=== PATIENT | female | born 1995 | race Caucasian/White ===

== ENCOUNTER 2024-06-15 15:52 | Emergency (ER) | payer OTHER ==
[2024-06-15] MEDS ORDERED: Dexamethasone 4 MG TAB ONE (18:17)
== END 2024-06-15 18:24 | disposition home or self-care (01) ==
LOC: ERS 15:52
DX: S90.562A Insect bite (nonvenomous), left ankle, initial encounter (principal); W57.XXXA Bitten or stung by nonvenomous insect and other nonvenomous arthropods, initial encounter
CPT/HCPCS: 99282; J8540